=== PATIENT | female | born 1950 | race Caucasian/White ===

== ENCOUNTER 2018-12-12 08:30 | Emergency (ER) | payer MEDICARE, OTHER ==
[~2018-12-12] VITALS: Ht 165.1 cm; Wt 68.0 kg
[~2018-12-12 08:30] MED LIST: ASPIRIN EC81 MG PO; DORZOLAMIDE HCL10 ML OD; FLUTICASONE PRO16 GM NAS; HYDROMORPHONE HC2 MG PO; LATANOPROST2.5 ML OPTH; LEVOTHYROXINE50 MCG PO; NORCO 5-325 TA1 EACH PO; ONDANSETRON ODT8 MG PO; PRILOSEC20 MG PO; TIMOLOL MALEATE10 ML OPTH; TRAZODONE HCL50 MG PO; XARELTO10 MG PO
== END 2018-12-12 10:23 | disposition home or self-care (01) ==
LOC: ED 08:30
DX: I80.01 Phlebitis and thrombophlebitis of superficial vessels of right lower extremity (principal); Z88.6 Allergy status to analgesic agent; Z79.899 Other long term (current) drug therapy; Z79.82 Long term (current) use of aspirin
CPT/HCPCS: 93971; 99283-25

== ENCOUNTER 2021-01-21 10:22 | Emergency (ER) | payer MEDICARE, OTHER ==
[~2021-01-21] VITALS: Ht 165.1 cm; Wt 72.1 kg
[2021-01-21] MEDS ORDERED: PEPCID AC10 MG PO (11:52)
[2021-01-21] MEDS ORDERED: CARBIDOPA-LEVO1 EACH PO (11:52)
[2021-01-21] MEDS ORDERED: XYZAL5 MG PO (11:53)
[2021-01-21] MEDS ORDERED: XARELTO15 MG PO (15:51)
== END 2021-01-21 16:03 | disposition home or self-care (01) ==
LOC: ED 10:22
DX: I80.01 Phlebitis and thrombophlebitis of superficial vessels of right lower extremity (principal); I80.251 Phlebitis and thrombophlebitis of right calf muscular vein; D68.51 Activated protein C resistance; Z86.718 Personal history of other venous thrombosis and embolism; Z88.6 Allergy status to analgesic agent; Z79.82 Long term (current) use of aspirin; Z79.899 Other long term (current) drug therapy
CPT/HCPCS: 93971; 99283-25

== ENCOUNTER 2022-05-01 10:46 | Emergency (ER) | payer MEDICARE, OTHER ==
[~2022-05-01] VITALS: Ht 165.1 cm; Wt 66.9 kg
[~2022-05-01 10:46] MED LIST changes: +CARBIDOPA-LEVO1 EACH PO; +PEPCID AC10 MG PO; +XARELTO15 MG PO; +XYZAL5 MG PO
--- OUTSIDE RECORDS SUMMARY | 2022-05-01 10:48 | XMS ---
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 - Patient with suicidal and/or homicidal ideations eloped. - Patient eloped with IV in place. Details: [facility] There are no care providers on record at this time. Jenelle has no Care Guidelines for this patient. E.D. VISIT COUNT (12 MO.) 2 [facility] 2 [facility]. TOTAL 4 NOTE: Visits indicate total known visits. ED/UCC VISIT TRACKING (12 MO.) 05/01/2022 10:47 [facility] [place] TYPE: Emergency COMPLAINT: - [facility] DIAGNOSES: - chills, 4 wks post op - Pain in left leg - Opioid use, unspecified with withdrawal - Chills - Fever (9 Weeks To 74 Years) [facility]22 [facility] DIAGNOSES: - Other acute postprocedural pain - Pain in left knee - poss blood clot left leg 01/25/2022 18:18 [facility] [place] TYPE: Emergency COMPLAINT: - POST OP PROBLEM INPATIENT VISIT TRACKING (12 MO.) No inpatient visits to display in this time frame [id number]
[2022-05-01] MEDS ORDERED: GABAPENTIN100 MG PO (11:15)
[2022-05-01] MEDS ORDERED: AMOX TR-K CLV1 EAC1 PO (13:54)
[2022-05-01] MEDS ORDERED: METRONIDAZOLE500 MG PO (13:54)
[2022-05-01] MEDS ORDERED: ONDANSETRON ODT4 MG PO (13:54)
== END 2022-05-01 14:11 | disposition home or self-care (01) ==
LOC: ED 10:46
DX: K57.32 Diverticulitis of large intestine without perforation or abscess without bleeding (principal); Z86.718 Personal history of other venous thrombosis and embolism; Z88.6 Allergy status to analgesic agent; Z79.899 Other long term (current) drug therapy; Z79.82 Long term (current) use of aspirin
CPT/HCPCS: 36415; 74174; 80053; 81003; 83690; 85025; 99284-25; Q9967

== ENCOUNTER 2022-07-14 07:52 | Emergency (ER) | payer MEDICARE, OTHER ==
[~2022-07-14] VITALS: Ht 165.1 cm; Wt 66.7 kg
[~2022-07-14 07:52] MED LIST changes: +AMOX TR-K CLV1 EAC1 PO; +GABAPENTIN100 MG PO; +METRONIDAZOLE500 MG PO; +ONDANSETRON ODT4 MG PO
--- OUTSIDE RECORDS SUMMARY | 2022-07-14 07:55 | XMS ---
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 - Patient with suicidal and/or homicidal ideations eloped. - Patient eloped with IV in place. Details: PATIENT LWBS CRITERIA MET - [facility] CARE PROVIDERS There are no care providers on record at this time. Jenelle has no Care Guidelines for this patient. E.D. VISIT COUNT (12 MO.) [address] TOTAL 5 NOTE: Visits indicate total known visits. ED/UCC VISIT TRACKING (12 MO.) 07/14/2022 07:53 [facility] [place] TYPE: Emergency COMPLAINT: - EXTREMITY PAIN/INJURY 05/01/2022 10:47 [facility] [place] TYPE: Emergency COMPLAINT: - BOWEL PAIN DIAGNOSES: - Other fci (current) drug therapy - Allergy status to analgesic agent - Diverticulitis of large intestine without perforation or abscess without bleeding - snf (current) use of aspirin - Personal history of other venous thrombosis and embolism - Upper abdominal pain, unspecified [facility] DIAGNOSES: - Chills - Fever (9 Weeks To 74 Years) - chills, 4 wks post op - Pain in left leg - Opioid use, unspecified with withdrawal 01[facility]25[facility]2022 [facility] DIAGNOSES: - poss blood clot left leg - Other acute postprocedural pain - Pain in left knee 01/25/2022 18:18 [facility] [place] TYPE: Emergency COMPLAINT: - POST OP PROBLEM INPATIENT VISIT TRACKING (12 MO.) No inpatient visits to display in this time frame [id number]
== END 2022-07-14 09:28 | disposition home or self-care (01) ==
LOC: ED 07:52
DX: S82.845A Nondisplaced bimalleolar fracture of left lower leg, initial encounter for closed fracture (principal); W17.89XA Other fall from one level to another, initial encounter; Z96.652 Presence of left artificial knee joint; Z88.8 Allergy status to other drugs, medicaments and biological substances; Z79.890 Hormone replacement therapy; Z79.899 Other long term (current) drug therapy; Z79.02 Long term (current) use of antithrombotics/antiplatelets
CPT/HCPCS: 73610; 73630; 99283-25